=== PATIENT | female | born 1945 | race Caucasian/White ===

== ENCOUNTER 2020-03-01 07:14 | Outpatient (CLI) | payer MEDICARE, SELFPAY ==
--- NOTE | ~2020-03-01 | MM_ITS ---
EXAMINATION: MM screening mei BI w luz HISTORY: Screening mammogram TECHNIQUE: Craniocaudal and mediolateral oblique 3-D tomosynthesis images were obtained and synthetic 2-D images were generated. CAD analysis was submitted and interpreted. COMPARISON: 02/28/2019, 02/25/2018, 02/23/2017 bilateral digital screening mammogram examinations BREAST PARENCHYMAL COMPOSITION: The breasts are heterogeneously dense, which may obscure small masses . FINDINGS: There is no evidence of suspicious mass, calcification, or architectural distortion to sugg est malignancy in either breast. There has been no suspicious interval change. IMPRESSION: 1. No mammographic evidence of malignancy. 2. Recommend routine screening mammography in one year. BI-RADS Category 1: Negative Reviewed, dictated and finalized at location B. INTAKE WORKER
== END 2020-03-01 07:15 | disposition home or self-care (01) ==
PROVIDERS: Visit Provider Obstetrics & Gynecology
DX: Z12.31 Encounter for screening mammogram for malignant neoplasm of breast (principal)
CPT/HCPCS: 77063; 77067

== ENCOUNTER → 2020-06-28 09:57 | Outpatient (CLI) | payer MEDICARE, SELFPAY ==
--- NOTE | ~2020-06-28 | XR_ITS ---
EXAMINATION: XR chest 2V DATE: 06/28/2020 10:21 INDICATION: Melanoma of the back. TECHNIQUE: Frontal and lateral views of the chest were obtained. COMPARISON: None. FINDINGS: The chest demonstrates clear lungs without pneumonia, pleural effusion, or pneumothorax. Th e heart size is normal. There is a left chest wall pacer with leads in the right atrium and right minoo tricle. IMPRESSION: 1. No evidence of metastatic disease. Reviewed, dictated and finalized at location A.
== END ==
PROVIDERS: Visit Provider Surgery
DX: C43.59 Malignant melanoma of other part of trunk (principal)
CPT/HCPCS: 71046

== ENCOUNTER 2021-03-03 07:38 | Outpatient (CLI) | payer MEDICARE, SELFPAY ==
--- NOTE | ~2021-03-03 | MM_ITS ---
EXAMINATION: MM screening [facility] BI w luz HISTORY: Screening mammogram TECHNIQUE: Craniocaudal and mediolateral oblique 3-D tomosynthesis images were obtained and synthetic 2-D images were generated. CAD analysis was submitted and interpreted. COMPARISON: 03/01/2020, 02/28/2019 BREAST PARENCHYMAL COMPOSITION: The breasts are heterogeneously dense, which may obscure small masses . FINDINGS: There is no evidence of suspicious mass, calcification, or architectural distortion to sugg est malignancy in either breast. There has been no suspicious interval change. IMPRESSION: 1. No mammographic evidence of malignancy. 2. Recommend routine screening mammography in one year. BI-RADS Category 1: Negative Reviewed, dictated and finalized at location A. HNUT BATTER MIXER
== END 2021-03-03 07:39 | disposition home or self-care (01) ==
LOC: ANHIMG 07:43
PROVIDERS: Visit Provider Obstetrics & Gynecology
DX: Z12.31 Encounter for screening mammogram for malignant neoplasm of breast (principal)
CPT/HCPCS: 77063; 77067

== ENCOUNTER → 2021-07-02 10:43 | Outpatient (CLI) | payer MEDICARE, SELFPAY ==
--- NOTE | ~2021-07-02 | XR_ITS ---
EXAMINATION: XR chest 2V 07/02/2021 11:16 INDICATION: Melanoma of the back PROCEDURE: 2 view chest COMPARISON: 06/28/2020 FINDINGS: The lungs are clear. The cardiomediastinal silhouette is within normal limits. There are no pleural effusions. There is no pneumothorax suspected. IMPRESSION: 1: NO ACUTE CARDIOPULMONARY DISEASE. Reviewed, dictated and finalized at location A.
== END ==
PROVIDERS: Visit Provider Surgery
DX: C43.59 Malignant melanoma of other part of trunk (principal)
CPT/HCPCS: 71046

== ENCOUNTER 2022-03-06 07:17 | Outpatient (CLI) | payer MEDICARE, SELFPAY ==
--- NOTE | ~2022-03-06 | MM_ITS ---
EXAMINATION: MM screening [facility] BI w luz HISTORY: Screening mammogram TECHNIQUE: Craniocaudal and mediolateral oblique 3-D tomosynthesis images were obtained and synthetic 2-D images were generated. CAD analysis was submitted and interpreted. COMPARISON: 03/03/2021, 03/01/2020, 02/28/2019 BREAST PARENCHYMAL COMPOSITION: The breasts are heterogeneously dense, which may obscure small masses . FINDINGS: RIGHT BREAST: No suspicious mass, calcification, or architectural distortion are identified to sugges t malignancy. There has been no suspicious interval change. LEFT BREAST: There is a possible mass in the posterior third of the breast in line with the nipple ax is. IMPRESSION: 1. Possible left breast mass. 2. Additional mammographic views and possible breast ultrasound are recommended. BI-RADS Category 0: Incomplete: Needs additional imaging evaluation. Reviewed, dictated and finalized at location A. BASE DESIGNER IMPRESSION: 1. Possible left breast mass. 2. Additional mammographic views and possible breast ultrasound are recommended . BI-RADS Category 0: Incomplete: Needs additional imaging evaluation.
== END 2022-03-06 07:18 | disposition home or self-care (01) ==
PROVIDERS: Visit Provider Obstetrics & Gynecology
DX: Z12.31 Encounter for screening mammogram for malignant neoplasm of breast (principal); R92.8 Other abnormal and inconclusive findings on diagnostic imaging of breast
CPT/HCPCS: 77063; 77067

== ENCOUNTER 2022-03-31 11:11 | Outpatient (CLI) | payer MEDICARE, SELFPAY ==
--- NOTE | ~2022-03-31 | MMUS_ITS ---
EXAMINATION: MM diagnostic mei LT w luz, US breast LT complete HISTORY: Comparison to multiple prior studies sequentially, with oldest reviewed study dated 017. TECHNIQUE: Additional 3-D tomosynthesis images of the left breast were performed and synthetic 2-D im ages were generated. CAD analysis was submitted and interpreted. High resolution complete left breast ultrasound was performed. COMPARISON: Comparison to multiple prior studies sequentially, with oldest reviewed study dated 02/10. BREAST PARENCHYMAL COMPOSITION: The breasts are heterogeneously dense, which may obscure small masses FINDINGS: MAMMOGRAPHIC FINDINGS: There are no suspicious masses, calcifications or architectural distortion in the left breast to sugg est malignancy. Focal asymmetry in the left breast is less apparent with spot compression views, like ly superimposed fibroglandular tissue. ULTRASOUND: Complete left breast ultrasound including all 4 quadrants in the subareolar location: Normal heteroge neous echotexture without focal solid or cystic mass. IMPRESSION: 1. No evidence for malignancy in the left breast. 2. Routine yearly screening mammogram and regular clinical breast examination are recommended. BI-RADS Category 1: Negative Reviewed, dictated and finalized at location A. GRATION DIRECTOR IMPRESSION: 1. No evidence for malignancy in the left breast. 2. Routine yearly screening mammogram and regular clinical breast examination a re recommended. BI-RADS Category 1: Negative
== END 2022-03-31 11:12 | disposition home or self-care (01) ==
PROVIDERS: Visit Provider Obstetrics & Gynecology
DX: R92.8 Other abnormal and inconclusive findings on diagnostic imaging of breast (principal)
CPT/HCPCS: 76641; 77061; 77065; G0279

== ENCOUNTER → 2022-07-08 10:19 | Outpatient (CLI) | payer MEDICARE, SELFPAY ==
--- NOTE | ~2022-07-08 | XR_ITS ---
XR chest 2V DATE: 07/08/2022 11:04 INDICATION: Melanoma of back TECHNIQUE: PA and lateral views COMPARISON: 07/02/2021 PA and lateral chest FINDINGS: Left sided transvenous pacemaker device with leads overlying right atrium and right ventric le. Normal heart size. No hilar or mediastinal enlargement. There is minimal aortic unfolding. No pulmonary infiltrate or consolidation, pleural effusion or pulmonary vascular congestion or pneumo thorax is detected. There is osteopenia. IMPRESSION: No active cardiac pulmonary disease Left dual-lead pacemaker Reviewed, dictated and finalized at location B.
== END ==
PROVIDERS: Visit Provider Surgery
DX: C43.59 Malignant melanoma of other part of trunk (principal); Z95.0 Presence of cardiac pacemaker
CPT/HCPCS: 71046

== ENCOUNTER 2022-08-29 14:55 | Emergency (ER) | payer MEDICARE, SELFPAY ==
--- NOTE | 2022-08-29 14:56 | ED.EYEPROB ---
HPI - Eye Problem General Chief complaint: Eye Problems Stated complaint: EYE REDNESS/SWELLING Time Seen by Provider: 08/29/22 14:56 Source: patient and RN notes reviewed History of Present Illness HPI Narrative: Patient is a 77-year-old female who presents to urgent care with complaints of tenderness and right upper eyelid swelling. Patient states that it started with some pain yesterday and she woke up this morning with some swelling and matting to the eye. Patient is concerned that ?it may be shingles?. Denies any vision changes or headache. Denies any pain to the actual eye. No other acute complaints. No acute distress noted. Patient aware of the plan of care. Some parts of this dictation were generated by voice recognition software and may contain typographical and/or grammatical inaccuracies. Related Data Home Medications Medication Instructions Recorded Confirmed alendronate 70 mg tablet mg PO 08/29/22 apixaban 5 mg tablet (Eliquis) mg 08/29/22 Allergies Allergy/AdvReac Type Severity Reaction Status Date / Time NO KNOWN DRUG ALLERGIES Allergy Y Uncoded 08/29/22 15:00 (Class Allergy) Review of Systems Review of Systems: CONSTITUTIONAL: Denies fever, chills, or sweats. EYES: Reports of clear drainage, tenderness, redness and swelling to the right upper eyelid ENT: Denies rhinorrhea, congestion, sore throat, or otalgia. CARDIOVASCULAR: Denies chest pain, palpitations, or edema. RESPIRATORY: Denies cough or dyspnea. GASTROINTESTINAL: Denies abdominal pain, nausea, vomiting, or diarrhea. GENITOURINARY: Denies dysuria or hematuria. SKIN: Denies rash or itching. MUSCULOSKELETAL: Denies back pain, joint pain, or myalgia. NEUROLOGIC: Denies headache, numbness, or weakness. All other systems reviewed are negative, except as documented in HPI. PMFSH Comments At the time of my signature, I reviewed and agree with the nursing past medical, surgical, social, and family history. There is no relevant family history pertinent to the patient complaint. Exam Narrative: GENERAL: This is a well-nourished, well-developed patient, in no apparent distress. HEAD: normocephalic, atraumatic. EYES: PERRL. Sclera clear/white. Vision is grossly intact. Mild irritation/erythema noted to the right upper eyelid with drain hordeolum mid pupillary of the right upper eyelid EARS: External ears normal NOSE: External nose normal with no obvious nasal discharge, nares without redness, no rhinorrhea. THROAT: Mucous membranes moist NECK: Neck supple, SKIN: warm, intact with no suspicious lesions or rash, good texture and turgor. NEURO: awake, alert, and oriented to person, place and time. There were no obvious focal neurologic abnormalities. EXTREMITIES: No clubbing, cyanosis, or edema. Course Course Level of Care: Express Care Visit Vital Signs Vital signs: Vital Signs Temperature 97.3 F L 08/29/22 15:02 Pulse Rate 90 08/29/22 15:02 Respiratory Rate 16 08/29/22 15:02 Blood Pressure 137/80 08/29/22 15:02 Pulse Oximetry 100 08/29/22 15:02 Temperature 97.3 F L 08/29/22 15:02 Pulse Rate 90 08/29/22 15:02 Respiratory Rate 16 08/29/22 15:02 Blood Pressure 137/80 08/29/22 15:02 Pulse Oximetry 100 08/29/22 15:02 Reviewed MDM - Eye Problem MDM Narrative Medical decision making narrative: Advised patient to take an fxyc-oej-mcoaqav antihistamine such as Benadryl/Claritin/Zyrtec as needed for drainage and itchiness. Use the prescription eye drops to the affected eye as directed. May continue the warm compress. Advised patient to go directly to the emergency room if she has any pain in the eye, headache, or moderate swelling of the eye. Follow-up with your PCP within 2-5 days or for worsening symptoms or failure to improve. Differential Diagnosis Differential diagnosis: Likely corneal abrasion, conjunctivitis, acute iritis, hyphema, periorbital cellulitis, subconjunctival hemorrhage and
[2022-08-29 15:02] VITALS: BP 137/80; PULSE 90; RESP 16; TEMP 36.3; O2SAT 100
== END 2022-08-29 15:22 | disposition home or self-care (01) ==
PROVIDERS: Emergency Provider Nurse Practitioner Family
DX: H00.011 Hordeolum externum right upper eyelid (principal); I48.91 Unspecified atrial fibrillation; Z95.5 Presence of coronary angioplasty implant and graft; Z85.820 Personal history of malignant melanoma of skin
CPT/HCPCS: 99213; G0463

== ENCOUNTER 2022-10-22 09:02 | Emergency (ER) | payer MEDICARE, SELFPAY ==
--- NOTE | ~2022-10-22 | CT_ITS ---
EXAMINATION: CT cervical spine wo con DATE: 10/22/2022 09:44 INDICATION: Head injury TECHNIQUE: Computed tomography (CT) of the cervical spine was performed without intravenous contrast. The dose-length product (DLP) was 123.61 mGy-cm. Automated exposure control and iterative reconstruc tion technique were employed. COMPARISON: None FINDINGS: Bone alignment is normal. There is no fracture. There is severe loss of intervertebral disc space height with endplate remodeling at C5-6 and C6-7. There is moderate loss of intervertebral dis c space height at C3-4 and C4-5. The vertebral body heights are maintained. The odontoid process is i ntact. 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 IMPRESSION: 1. Moderate cervical spondylosis without acute findings. Reviewed, dictated and finalized at location L.
--- NOTE | ~2022-10-22 | CT_ITS ---
EXAMINATION: CT brain wo con DATE: 10/22/2022 09:44 INDICATION: Head injury TECHNIQUE: Computed tomography (CT) of the head was performed without intravenous contrast. Sagittal and coronal reconstructions were performed. The mA was adjusted according to patient size. Iterative reconstruction technique was employed. The dose-length product was 529.67 mGy-cm. COMPARISON: None FINDINGS: No fracture. No acute intracranial hemorrhage, acute infarction or abnormal extra axial fluid collect ion. Small old lacunar infarct at the right basal ganglia. There is mild scattered white matter hypoa ttenuation consistent with chronic small vessel ischemic disease. Ventricles are normal and symmetri c. No mass/mass effect. Changes of bilateral intraocular lens replacement. The orbits, paranasal sinu ses and mastoid air cells are normal. IMPRESSION: 1. No fracture or acute intracranial process. 2. Small old lacunar infarct at the right basal ganglia and mild scattered white matter hypoattenuati on consistent with chronic small vessel ischemic disease. Reviewed, dictated and finalized at location A. IMPRESSION: 1. No fracture or acute intracranial process. 2. Small old lacunar infarct at the right basal ganglia and mild scattered whit e matter hypoattenuation consistent with chronic small vessel ischemic disease.
[2022-10-22 09:10] VITALS: BP 152/70; PULSE 73; TEMP 36.8
--- NOTE | 2022-10-22 09:30 | ED.FALL ---
HPI - Fall General Chief Complaint: Fall Stated Complaint: fall yesterday/ariza/on eliquis Time Seen by Provider: 10/22/22 09:11 History of Present Illness HPI Narrative: 77-year-old female presented the emergency department for evaluation after having a fall with head injury yesterday. Patient states that she was standing on her porch yesterday when she fell backwards on her buttock and then fell further back and struck her head on the edge of a table. Patient denies any loss of consciousness with this. Patient denied any lightheaded or dizziness to call the fall. Patient does have a pacemaker and history of atrial fibrillation and patient is on Eliquis. Patient states that she had been eating and drinking normally that day and denies any alcohol. Patient is unsure what caused her to have a fall but felt that she had no lightheaded dizziness or cardiac arrhythmia. Patient does complain of a headache and some generalized muscle soreness. Patient did have some neck pain earlier in the day but states that this is improving. Related Data Home Medications Medication Instructions Recorded Confirmed alendronate 70 mg tablet mg PO 08/29/22 apixaban 5 mg tablet (Eliquis) mg 08/29/22 Allergies Allergy/AdvReac Type Severity Reaction Status Date / Time NO KNOWN DRUG ALLERGIES Allergy Y Uncoded 08/29/22 15:00 (Class Allergy) Review of Systems Review of Systems: All systems reviewed & are unremarkable except as noted in HPI and below Exam Narrative: APPEARANCE: Well appearing, no pain, no distress, well-nourished. HEAD: normocephalic, atraumatic. EYES: PERRLA/EOMI, conjunctivae clear. NOSE: Normal no drainage EARS:TMS clear with good light reflex. THROAT: Pharynx clear, no exudate. NECK: Supple. No adenopathy, no masses. RESPIRATORY: Airway patent, respirations nonlabored. Clear to auscultation bilaterally, no rales, rhonchi, wheezing. CARDIOVASCULAR: Regular rate and rhythm without murmurs rubs or gallops. ABDOMINAL: Soft, nontender, nondistended, normal bowel sounds MUSCULOSKELETAL: Moves all extremities. Strength/ROM intact, No edema, No calf tenderness. NEURO: Alert. Cranial nerves II through XII intact. Grossly intact SKIN: Warm, dry. Normal Color Course Course Emergency Course: 77-year-old female presented ED for evaluation after sustaining a head injury while on Eliquis. Patient was having some neck tenderness as well so CT brain and CT cervical spine were ordered. Head and neck CT were negative. Patient does feel back to her baseline. Patient declined any medications for pain control. Patient was able to ambulate at her baseline. Patient and family were updated on the results of the work-up. All questions and concerns are addressed Vital Signs Vital signs: Vital Signs Temperature 98.3 F 10/22/22 09:10 Pulse Rate 73 10/22/22 09:10 Blood Pressure 152/70 H 10/22/22 09:10 Temperature 98.3 F 10/22/22 09:10 Pulse Rate 80 10/22/22 10:38 Respiratory Rate 16 10/22/22 10:38 Blood Pressure 138/85 10/22/22 10:38 Pulse Oximetry 98 10/22/22 10:38 MDM - Fall Differential Diagnosis Differential diagnosis: Likely concussion without loss of consciousness and other Imaging Data Radiologist's impression: Impressions Head CT 10/22/22 09:45 IMPRESSION: 1. No fracture or acute intracranial process. 2. 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 Cervical Spine CT 10/22/22 09:50 IMPRESSION: 1. Moderate cervical spondylosis without acute findings. Discharge Plan Discharge Clinical Impression: Head injury Patient Disposition: Home, Self-Care Condition: Stable Instructions: Antibiotic Form, Head Injury (ED) Additional Instructions: Have close follow-up with your primary care physician. If you have any worsening symptoms please erick
[2022-10-22 10:38] VITALS: BP 138/85; PULSE 80; RESP 16; O2SAT 98
== END 2022-10-22 10:39 | disposition home or self-care (01) ==
PROVIDERS: Emergency Provider Emergency Medicine
DX: S09.90XA Unspecified injury of head, initial encounter (principal); Z79.01 Long term (current) use of anticoagulants; W18.39XA Other fall on same level, initial encounter; Y92.008 Other place in unspecified non-institutional (private) residence as the place of occurrence of the external cause
CPT/HCPCS: 70450; 72125; 99284

== ENCOUNTER 2023-04-08 07:03 | Outpatient (CLI) | payer MEDICARE, SELFPAY ==
--- NOTE | ~2023-04-08 | MM_ITS ---
EXAMINATION: MM screening mei BI w luz HISTORY: Screening mammogram TECHNIQUE: Craniocaudal and mediolateral oblique 3-D tomosynthesis images were obtained and synthetic 2-D images were generated. CAD analysis was submitted and interpreted. COMPARISON: 03/31/2022 diagnostic left mammogram and complete left breast ultrasound examination 03/06/2022, 03/03/2021, 03/01/2020 bilateral screening mammogram examinations BREAST PARENCHYMAL COMPOSITION: The breasts are heterogeneously dense, which may obscure small masses . FINDINGS: There is no evidence of suspicious mass, calcification, or architectural distortion to sugg est malignancy in either breast. There has been no suspicious interval change. IMPRESSION: 1. No mammographic evidence of malignancy. 2. Recommend routine screening mammography in one year. BI-RADS Category 1: Negative Reviewed, dictated and finalized at location A. LABELER
== END 2023-04-08 07:04 | disposition home or self-care (01) ==
LOC: ANHIMG 07:10
PROVIDERS: Visit Provider Obstetrics & Gynecology
DX: Z12.31 Encounter for screening mammogram for malignant neoplasm of breast (principal)
CPT/HCPCS: 77063; 77067

== ENCOUNTER 2023-11-30 12:47 | Emergency (ER) | payer MEDICARE, SELFPAY ==
--- NOTE | 2023-11-30 13:14 | ED.FALL ---
HPI - Fall General Stated Complaint: FACIAL INJURY Source: patient, family and RN notes reviewed Mode of arrival: ambulatory Limitations: no limitations History of Present Illness HPI Narrative: Patient is a 78-year-old female who presents to the [facility] after a fall that occurred just prior to arrival. Patient states that she was walking with her when she tripped over elevation in the sidewalk, causing her to fall forward. Patient is unsure whether not she struck her head but states that she believes she struck her nose on the concrete. She presents with a 1 cm laceration to the bridge her nose with active bleeding. Patient states that she takes Eliquis for history of AFib. Patient reports tenderness to nose. States that she is also experiencing pain to her teeth and jaw. She denies neck or back pain at this time. Patient also presents with an abrasion to the left knee. She reports tenderness to the left knee but is able to perform full range of motion of the knee. Patient states that she is also having soreness to bilateral wrists. She believes that she attempted to catch herself with her hands. Patient is currently alert and oriented x4 with no obvious neurological deficits. She denies numbness, weakness, difficulty walking, difficulty talking at this time. Other than history of atrial fibrillation, patient admits to having a pacemaker. Related Data Home Medications Medication Instructions Recorded Confirmed alendronate 70 mg tablet mg PO 08/29/22 apixaban 5 mg tablet (Eliquis) mg 08/29/22 Allergies Allergy/AdvReac Type Severity Reaction Status Date / Time NO KNOWN DRUG ALLERGIES Allergy Y Uncoded 08/29/22 15:00 (Class Allergy) Review of Systems Review of Systems: CONSTITUTIONAL: Denies fever, chills, or sweats. EYES: Denies visual changes, redness, or discharge. ENT: Denies otalgia and sore throat CARDIOVASCULAR: Denies chest pain, palpitations, or edema. RESPIRATORY: Denies cough or dyspnea. GASTROINTESTINAL: Denies abdominal pain, nausea, vomiting, or diarrhea. GENITOURINARY: Denies dysuria or hematuria. SKIN: Denies rash or itching. Nasal laceration. Abrasion to left knee. MUSCULOSKELETAL: Denies back pain or neck pain. Tenderness to bilateral wrists and left knee. NEUROLOGIC: Denies headache, numbness, or weakness. Pertinent positives per HPI. PMFSH Comments At the time of my signature, I reviewed and agree with the nursing past medical, surgical, social, and family history. There is no relevant family history pertinent to the patient complaint. Exam Narrative: GENERAL: This is a well-nourished, well-developed patient. HEAD: normocephalic. EYES: PERRL. Sclera clear/white. Vision is grossly intact. EARS: External ears normal. Hearing grossly intact. NOSE: Nasal tenderness with laceration to the bridge of the nose with active bleeding. There also appears to be a superficial laceration under the left nostril with no active bleeding. THROAT: Mucous membranes moist, posterior pharynx clear. NECK: Neck supple, non-tender without lymphadenopathy, masses or thyromegaly. CARDIOVASCULAR: Regular rate and rhythm without murmurs, gallops, or rubs. RESPIRATORY: Clear to auscultation. Breath sounds equal bilaterally. No wheezes, rales, or rhonchi. GASTROINTESTINAL: Abdomen soft, non-tender, nondistended. Bowel sounds are active. No hepato-splenomegaly, or palpable masses. No guarding. SKIN: Abrasion to left knee. NEURO: awake, alert, and oriented to person, place and time. There were no obvious focal neurologic abnormalities. EXTREMITIES: Tenderness to bilateral wrists and left knee. Full range of motion present. Distal neurovascular status intact. Sensation intact. BACK: Nontender without deformity or crepitance. No flank tenderness. Course Course Level of Care: Express Care Visit Vital Signs Vital signs: Reviewed Transfer Transfered to: [place] Transportation: Other (private vehicle)
[2023-11-30 13:16] VITALS: BP 135/81; PULSE 108; RESP 16; TEMP 36.6; O2SAT 100
== END 2023-11-30 13:08 | disposition short-term general hospital (02) ==
PROVIDERS: Emergency Provider Nurse Practitioner
DX: S09.90XA Unspecified injury of head, initial encounter (principal); S01.21XA Laceration without foreign body of nose, initial encounter; S80.212A Abrasion, left knee, initial encounter; W18.30XA Fall on same level, unspecified, initial encounter; I48.91 Unspecified atrial fibrillation; Z79.01 Long term (current) use of anticoagulants; Z95.0 Presence of cardiac pacemaker; Z85.820 Personal history of malignant melanoma of skin
CPT/HCPCS: 99212; G0463

== ENCOUNTER 2023-11-30 13:46 | Emergency (ER) | payer MEDICARE, SELFPAY ==
--- NOTE | ~2023-11-30 | XR_ITS ---
XR wrist LT min 3V Ordering provider: Shakila Solorzano MD History: . FOOSH, BILATERAL wrist pain . Comparison: None. FINDINGS: BONES: No acute fracture or dislocation. No definite scaphoid fracture. JOINT SPACES: Well maintained. Osteoarthritic changes of the first carpometacarpal joint. SOFT TISSUES: Normal. IMPRESSION: No acute osseous abnormality left wrist. Reviewed, dictated and finalized at location A.
--- NOTE | ~2023-11-30 | CT_ITS ---
EXAMINATION: CT cervical spine wo con DATE: 11/30/2023 15:49 INDICATION: Fall with head injury TECHNIQUE: Computed tomography (CT) of the cervical spine was performed without intravenous contrast. Automated exposure control and iterative reconstruction technique were employed. The dose-length pro duct was 158.02 mGy-cm. COMPARISON: 10/22/2022 FINDINGS: Mild cervical levocurvature. Straightening of the normal cervical lordosis with no spondylolisthesis or facet subluxation. Vertebral body heights are normal. No fracture. Sclerotic bone island at the le ft side of the C4 vertebral body. Severe disc height loss with severe uncovertebral osteoarthritis at C5-C6 and C6-C7. Moderate disc height loss at C3-C4 and C4-C5 and mild disc height loss at C2-C3 and C6-C7. Small disc bulges or disc osteophyte complex resulting in minimal central canal stenosis at C 4-C5 through C6-C7. Severe facet osteoarthritis on the right at C4-C5 and bilaterally at C7-T1 and a few levels in the visualized upper thoracic spine. Additional multilevel mild to moderate facet osteo arthritis in the remainder of the cervical spine. This contributes to multilevel mild bilateral cervi erick neural foraminal stenosis. Cervical soft tissues are unremarkable. Mild biapical pleural-parenchy mal scarring. IMPRESSION: 1. Severe cervical spondylosis. No acute osseous abnormality. Reviewed, dictated and finalized at location A.
--- NOTE | ~2023-11-30 | CT_ITS ---
EXAMINATION: CT brain wo con DATE: 11/30/2023 14:18 INDICATION: Head injury. Fall. TECHNIQUE: Computed tomography (CT) of the head was performed without intravenous contrast. The mA wa s adjusted according to patient size. Iterative reconstruction technique was employed. The dose-lengt h product was 285.65 mGy-cm. COMPARISON: Head CT 10/22/2022 FINDINGS: There are scattered areas of low attenuation in the cerebral white matter. There is no intr acranial hemorrhage, acute infarction, or abnormal intracranial mass lesion. The ventricles are baldemar l in size. There are likely changes of ocular lens replacement surgeries. The paranasal sinuses are c lear. The mastoid air cells are normal. IMPRESSION: 1. Stable mild nonspecific cerebral white matter disease, which likely represents chronic small vesse l ischemic disease. Reviewed, dictated and finalized at location A. IMPRESSION: 1. Stable mild nonspecific cerebral white matter disease, which likely represen ts chronic small vessel ischemic disease.
--- NOTE | ~2023-11-30 | CT_ITS ---
CT facial bones wo con Ordering provider: Shakila Solorzano MD History: . fall, on eliquis, epistaxis . Comparison: None. Technique: Thin slice axial CT of the facial bones was performed without contrast. Coronal and sagit alberto reformatted images were also obtained. . Automated exposure control and iterative reconstruction technique were employed. The dose-length product was 285.65 mGy-cm. FINDINGS: PARANASAL SINUSES: Well aerated. BONES: No facial fracture including no nasal bone fracture. Mild right nasal septal deviation. Soft t issue density is seen in the inferior aspect of the nasal septum clinical evaluation advised. Fractur e is less likely. ORBITS AND SUPERFICIAL SOFT TISSUES: The optic globes and orbits are normal. The superficial soft tis sues are normal. VISUALIZED MASTOIDS: Well aerated. Osteoarthritic changes of the temporomandibular joints. LIMITED VISUALIZED BRAIN PARENCHYMA: Normal. IMPRESSION: No definite facial fracture. Right nasal septal deviation. Small Soft tissue density seen in the inferior nasal septum. Clinical e valuation advised Reviewed, dictated and finalized at location A. IMPRESSION: No definite facial fracture. Right nasal septal deviation. Small Soft tissue density seen in the inferior na zee septum. Clinical evaluation advised
--- NOTE | ~2023-11-30 | XR_ITS ---
XR wrist RT min 3V Ordering provider: Shakila Solorzano MD History: . FOOSH, BILATERAL wrist pain . Comparison: None. FINDINGS: BONES: No acute fracture or dislocation. No definite scaphoid fracture. JOINT SPACES: Osteoarthritic changes of the first carpometacarpal joint. No SOFT TISSUES: Normal. IMPRESSION: No acute osseous abnormality right wrist. Reviewed, dictated and finalized at location A.
[2023-11-30 13:59] VITALS: BP 144/78; PULSE 109; RESP 16; TEMP 36.8; O2SAT 95
--- NOTE | 2023-11-30 16:36 | PC.NURSE ---
Assumed care of pt. Bleeding to nasal bridge stopped. Noted half round laceration to nasal bridge. Pt unsure of tetanus vaccine
--- NOTE | 2023-11-30 17:22 | ED.FALL ---
HPI - Fall General Chief Complaint: Fall Stated Complaint: fall, epistaxis Time Seen by Provider: 11/30/23 17:01 History of Present Illness HPI Narrative: Year old female who is chronically anticoagulated on Eliquis for AFib presents to emergency department from local urgent care for a ground level fall. Patient states around noon today she was walking outside when she misstepped off of a curb and fell to the ground. States she hit her nose on the curb and braced herself with her bilateral wrists and knees. She is reporting pain to both of her wrist, her nose and abrasions to her knees. Last Tdap is unknown. States she had epistaxis to bilateral nares earlier but that has since resolved. She denies LOC, neck pain or back pain, other injuries acquired. Denies focal numbness or weakness. Related Data Home Medications Medication Instructions Recorded Confirmed alendronate 70 mg tablet 70 mg PO DAILY 08/29/22 11/30/23 apixaban 5 mg tablet (Eliquis) 5 mg PO DAILY 08/29/22 11/30/23 Allergies Allergy/AdvReac Type Severity Reaction Status Date / Time No Known Allergies Allergy Verified 11/30/23 13:42 Review of Systems Review of Systems: All systems reviewed & are unremarkable except as noted in HPI and below Exam Narrative: GENERAL: Well-appearing, well-nourished, and in no acute distress. HEAD: Normocephalic EYES: PERRLA and EOMI. ENT: Nares clear, no rhinorrhea or epistaxis. Mucous membranes moist. no dental fractures. Tenderness and edema to the nasal bridge with a small linear 1 cm laceration over the bridge of the nose with mild oozing. No be structures or foreign bodies visualized. No active epistaxis. No Evidence of septal hematoma. NECK: no midline cervical spinous tenderness, step-offs or deformities CHEST: Clear to auscultation. No respiratory distress. no tenderness to chest wall HEART: Regular rate and rhythm. No murmur heard. Normal peripheral pulses. ABDOMEN: Soft, nontender, nondistended, normal active bowel sounds. EXTREMITIES: diffuse tenderness to the bilateral wrists overlying plantar aspect of the wrist with small overlying abrasions bilaterally. No active bleeding. No snuffbox tenderness. Full active and passive range of motion of wrist, no tenderness remainder of upper extremities. Bilateral abrasions to the knees without bony tenderness. Full active range of motion of knees. No tenderness remainder of lower extremities. SKIN: Warm, dry, no rash. NEURO: No focal deficits. Alert and oriented x3 . cranial nerves 2-12 intact. Strength 5/5 in BUE and BLE. Sensation intact throughout. Normal [id number]. No pronator drift. Course Vital Signs Vital signs: Vital Signs Temperature 98.2 F 11/30/23 13:59 Pulse Rate 109 H 11/30/23 13:59 Respiratory Rate 16 11/30/23 13:59 Blood Pressure 144/78 H 11/30/23 13:59 Pulse Oximetry 95 11/30/23 13:59 Temperature 97.8 F 11/30/23 18:48 Pulse Rate 90 11/30/23 18:48 Respiratory Rate 16 11/30/23 18:48 Blood Pressure 140/70 11/30/23 18:48 Pulse Oximetry 96 11/30/23 18:48 Procedures Laceration Laceration 1: Date: 11/30/23 Time: 18:04 Site: face Size (cm): 1 Description: linear Depth: simple, single layer Pre-repair: wound explored and irrigated ====== Skin Level ====== Skin layer closed with: steri strips ====== Subcutaneous Layer ====== ====== Muscle Layer ====== ====== Tendon Layer ====== MDM - Fall MDM Narrative Medical decision making narrative: 78-year-old female who is chronically anticoagulated on Eliquis presents to the emergency department after ground level mechanical fall that occurred around 1200 today. Patient did hit her head but did not lose consciousness. Triage vitals are significant for tachycardia 109. Patient is neurovascularly intact, see exam above. Tdap updated in the ED. CT brain shows no acute i
[2023-11-30] MEDS: TETANUS,DIPHTHERIA,AC PERTUSSIS ADULT (0.5 ML) BOOSTRIX IM (18:05)
[2023-11-30] MEDS: CEPHALEXIN 500 MG CAPSULE PO (18:09)
--- NOTE | 2023-11-30 18:47 | PC.NURSE ---
Pt laceration repaired by [facility]. Pt tolerated well. noted scan amount of bloody drainage oozing from left nares. Nasal drip pad applied.
[2023-11-30 18:48] VITALS: BP 140/70; PULSE 90; RESP 16; TEMP 36.6; O2SAT 96
== END 2023-11-30 18:52 | disposition home or self-care (01) ==
LOC: ANHED 17:39
PROVIDERS: Emergency Provider Physician Assistant
DX: S01.21XA Laceration without foreign body of nose, initial encounter (principal); S66.912A Strain of unspecified muscle, fascia and tendon at wrist and hand level, left hand, initial encounter; S66.911A Strain of unspecified muscle, fascia and tendon at wrist and hand level, right hand, initial encounter; S80.02XA Contusion of left knee, initial encounter; S80.01XA Contusion of right knee, initial encounter; R93.0 Abnormal findings on diagnostic imaging of skull and head, not elsewhere classified; Z23 Encounter for immunization; I48.91 Unspecified atrial fibrillation; Z79.01 Long term (current) use of anticoagulants; M47.812 Spondylosis without myelopathy or radiculopathy, cervical region; R90.82 White matter disease, unspecified; W10.1XXA Fall (on)(from) sidewalk curb, initial encounter
CPT/HCPCS: 70450; 70486; 72125; 73110; 90471; 90715; 99284; A9270

== ENCOUNTER 2024-04-10 07:17 | Outpatient (CLI) | payer MEDICARE, SELFPAY ==
--- NOTE | ~2024-04-10 | MM_ITS ---
EXAMINATION: MM screening [facility] BI w luz HISTORY: Screening mammogram TECHNIQUE: Craniocaudal and mediolateral oblique 3-D tomosynthesis images were obtained and synthetic 2-D images were generated. CAD analysis was submitted and interpreted. COMPARISON: 04/08/2023, 03/06/2022, 03/03/2021 BREAST PARENCHYMAL COMPOSITION:Not Dense. There are scattered areas of fibroglandular density. FINDINGS: No suspicious mass, calcification, or architectural distortion are identified in either tamiko ast to suggest malignancy. There has been no suspicious interval change. IMPRESSION: No mammographic evidence of malignancy. Recommend routine screening mammography in one year. BI-RADS Category 1: Negative Reviewed, dictated and finalized at location . N TO SWIM INSTRUCTOR
== END 2024-04-10 07:18 | disposition home or self-care (01) ==
LOC: ANHIMG 07:20
PROVIDERS: Visit Provider Obstetrics & Gynecology
DX: Z12.31 Encounter for screening mammogram for malignant neoplasm of breast (principal)
CPT/HCPCS: 77063; 77067